=== PATIENT | female | born 1970 | race Caucasian/White ===

== ENCOUNTER 2025-08-03 06:35 | Outpatient (CLI) | payer MEDICAID, SELFPAY ==
--- NOTE | 2025-08-03 07:00 | US_ITS ---
WS: [id number] THYROID ULTRASOUND HISTORY: thyroid nodule COMPARISON: None available. Right lobe: 1.5 cm x 2.2 cm x 3.6 cm (w x ap x l). Volume: 6.0 cm3. Mildly enlarged RIGHT thyroid. There is a dominant isoechoic nodule in the RIGHT thyroid which is predominantly solid with a few scattered cystic areas. There are a few echogenic foci. This is a well-circumscribed nodule with increased vascularity. Nodule is centered in the mid gland and measures 1.9 x 1.3 x 2.2 cm. Left lobe: 1.3 cm x 1.2 cm x 4.2 cm (w x ap x l). Volume: 3.1 cm3. Normal sized gland. There is a colloid nodule in the posterior inferior LEFT thyroid. Nodule measures 0.4 x 0.4 x 0.8 cm. Isthmus: 0.2 cm. US/US thyroid 41132 IMPRESSION: 1. TI-RADS 4; mildly suspicious nodule. RIGHT thyroid nodule. By history this nodule has undergone prior biopsy. There are no prior imaging studies for adriano jaramillo to evaluate for growth or change. Follow-up should be based on the prior biopsy results. If this nodule has not been biopsied recommend ultrasound-guide d FNA at this time. 2. LEFT thyroid colloid cyst.
== END 2025-08-03 06:36 | disposition home or self-care (01) ==
LOC: RAD 06:37
PROVIDERS: PCP Student in an Organized Health Care Education/Training Program; Visit Provider Internal Medicine
DX: E04.2 Nontoxic multinodular goiter (principal); R93.89 Abnormal findings on diagnostic imaging of other specified body structures
CPT/HCPCS: 76536

== ENCOUNTER 2025-08-18 12:43 | Outpatient (CLI) | payer MEDICAID, SELFPAY ==
--- NOTE | 2025-08-18 13:15 | US_ITS ---
WS: [id number] ULTRASOUND THYROID FNA CLINICAL INFORMATION: Thyroid Nodule TECHNIQUE: Ultrasound-guided FNA FINDINGS: The procedure including risks, benefits, and complications were discussed with the patient who agreed to proceed. Timeout was performed. Using sterile technique patient was prepped and draped in usual sterile fashion. After 1% lidocaine, using ultrasound guidance, a 25-gauge needle was advanced into the RIGHT thyroid nodule. 5 passes were made with active aspiration. Pathology was present for slide preparation. No immediate complications. Patient remained in the ultrasound suite 10 minutes postprocedure with intermittent ultrasound to ensure no hematoma. No hematoma 10 minutes postprocedure. US/US biopsy/FNA thyroid [id number] IMPRESSION: Uncomplicated ultrasound-guided RIGHT thyroid FNA Cytology is pending.
== END 2025-08-18 12:44 | disposition home or self-care (01) ==
LOC: RAD 12:45
PROVIDERS: PCP Student in an Organized Health Care Education/Training Program; Visit Provider Internal Medicine
DX: E04.1 Nontoxic single thyroid nodule (principal)
CPT/HCPCS: 10005; 88173